=== PATIENT | male | born 1945 | race Caucasian/White ===

== ENCOUNTER 2018-05-09 20:29 | Observation (INO) | payer MEDICARE, BC, OTHER ==
[2018-05-09 21:02] LABS: #Basophils 0.1 thou/uL (0.0-0.2); #Eosinphils 0.4 thou/uL (0.0-0.7); #Lymphocytes 2.3 thou/uL (1.20-3.40); #Monocytes 0.9 thou/uL (0.11-0.59); #Neutrophils 5.5 thou/uL (1.40-6.50); %Basophils 0.9 % (0.0-1.0); %Eosinophils 3.9 % (0.0-10.0); %Lymphocytes 25.1 % (21.0-51.0); %Monocytes 9.3 % (0.0-10.0); %Neutrophils 60.8 % (42.0-75.0); Hemoglobin 15.4 g/dL (14.0-18.0); Mean Corpuscular HGB CONC 35.2 g/dL (32.0-36.0); Mean Corpuscular Hemoglobin 32.8 pg (27.0-31.0); Mean Corpuscular Volume 93.1 fL (78.0-98.0); Mean Platelet Volume 6.8 fL (7.4-10.4); Platelet Count 300 thou/uL (130-400); RBC Distribution Width 12.2 % (11.5-14.5); Red Blood Cell (RBC) Count 4.68 mill/uL (4.70-6.10); White Blood Cell (WBC) Count 9.1 thou/uL (4.8-10.8)
[2018-05-09 21:06] LABS: INR-International Normal Ratio 0.9; PTT 26.5 SEC (22.9-36.1); Prothrombin Time 12.5 SEC (12.0-14.7)
[2018-05-09 21:22] LABS: ALT (SGPT) 29 U/L (8-55); AST (SGOT) 26 U/L (5-34); Albumin 4.5 g/dL (3.4-4.8); Alkaline Phosphatase 89 U/L (40-150); Anion Gap 18 mmol/L (10-20); BUN (Urea Nitrogen) 16 mg/dL (8.4-25.7); Bilirubin, Total 0.6 mg/dL (0.2-1.2); CK (CPK) 197 U/L (30-200); Calc. Creatinine Clearance 0 mL/min (70-130); Calcium 9.9 mg/dL (7.8-10.44); Carbon Dioxide 23 mmol/L (23-31); Chloride 97 mmol/L (98-107); Estimated GFR-MDRD 62; Globulin 3.2 g/dL (2.4-3.5); Glucose 213 mg/dL (83-110); Protein, Total 7.7 g/dL (5.8-8.1); Sodium 134 mmol/L (136-145)
[2018-05-09 21:27] LABS: Troponin I Less than 0.010 ng/mL (< 0.028)
--- NOTE | 2018-05-09 21:29 | RAD ---
CHEST ONE VIEW: 05/09/18 HISTORY: Pain. COMPARISON: 05/24/04. FINDINGS: There are sternotomy wires. Normal cardiac silhouette. The pulmonary vessels and hilum are normal. Co stophrenic angles are clear. Diminished lung volumes, likely due to poor inspiratory effort. Intersti tial opacities in the lung bases are presumed to be due to atelectasis. Superimposed infiltrates kenney ot be completely excluded. No pneumothorax. IMPRESSION: Diminished lung volumes, likely due to poor inspiratory effort. Bibasilar interstitial o pacities as described above. POS: [facility]
[2018-05-09] MEDS ORDERED: Nitroglycerin 0.4 MG TAB (25 Tab Bottle) ONE (23:43)
[2018-05-10 00:24] LABS: Troponin I Less than 0.010 ng/mL (< 0.028)
[2018-05-10] MEDS ORDERED: Acetaminophen 325 MG TAB PO PRN (00:54)
[2018-05-10] MEDS ORDERED: Ondansetron HCl/PF 4 MG/2 ML Vial IVP PRN (00:54)
[2018-05-10] MEDS ORDERED: Ondansetron ODT 4 MG TAB SL PRN (00:54)
[2018-05-10 00:58] VITALS: BMI 30.9
[2018-05-10] MEDS ORDERED: Pramipexole Di-HCl 0.25 MG TAB PO SCH ×3 (03:15→21:00)
[2018-05-10] MEDS ORDERED: Ezetimibe 10 MG TAB PO SCH ×3 (03:15→21:00)
[2018-05-10] MEDS ORDERED: Atorvastatin Calcium 40 MG TAB PO SCH ×3 (03:15→21:00)
[2018-05-10 03:39] LABS: Troponin I 0.013 ng/mL (< 0.028)
[2018-05-10] MEDS ORDERED: HumaLOG 300 UNITS/3 ML VIAL SC PRN (05:23)
[2018-05-10] MEDS ORDERED: Dextrose 50% Abboject 50 ML SYRINGE SLOW IVP PRN (05:23)
[2018-05-10] MEDS ORDERED: Dextrose 5% in Water 1,000 ML IV PRN (05:23)
[2018-05-10] MEDS ORDERED: Clopidogrel Bisulfate 75 MG TAB PO SCH (09:00)
[2018-05-10] MEDS ORDERED: Aspirin 325 MG TAB PO SCH ×2 (09:00)
[2018-05-10] MEDS ORDERED: Non-Formulary Item 1 EACH (Ranolazine [Ranexa] 1,000 MG) PO SCH (09:00)
[2018-05-10] MEDS ORDERED: Insulin Glargine 8 UNITS in Pre-Filled Syringe 1 EACH SC SCH (09:00)
[2018-05-10] MEDS ORDERED: Tamsulosin HCl 0.4 MG CAP PO SCH (09:00)
--- NOTE | 2018-05-10 11:06 | HP ---
CHIEF COMPLAINT: Chest pain. HISTORY OF PRESENT ILLNESS: Patient is a very pleasant 72-year-old male with a history of coronary a rtery disease, status post bypass, who presented to the hospital with complaints of chest tightness. The patient stated that yesterday, while he was putting his medication in a pill box, felt significa nt pressure-like sensation across his chest area and felt that his heart rate was irregular. The pat ient stated that he felt his irregular heart rate. The patient denied any nausea, vomiting, or any d iarrhea. The patient stated that normally he does get some chest tightness; however, at this time it was followed by a pounding of his heart. The patient states that he had a catheterization 2 years a go, which he had some blockages; however, they were un-stentable. The patient had a bypass in 2003. He normally sees Dr. Baker. PAST MEDICAL HISTORY: History of coronary artery disease, diabetes, hypertension, hyperlipidemia. PAST SURGICAL HISTORY: He has had a bypass. He has had rotator cuff, appendectomy, and tonsillectom y. SOCIAL HISTORY: He denies any history of smoking. Occasional alcohol use, no recreational drug use. ALLERGIES: He is allergic to SULFAMETHOXAZOLE, BACTRIM, and IODINE CONTRAST. MEDICATIONS: As the following: Patient takes, 1. Aspirin 325 daily. 2. Atorvastatin 40 mg at bedtime. 3. Plavix 75 mg daily. 4. Zetia 10 mg at bedtime. 5. He takes Humalog 5-10 units p.r.n. 6. He takes 62 units of Lantus. 7. Isosorbide 30 units. 8. Lisinopril/hydrochlorothiazide 1 daily. 9. Metformin 1000 b.i.d. 10. Metoprolol 50 mg daily. 11. Multivitamin 1 daily. 12. Pramipexole 0.5 mg q.p.m. 13. Ranolazine at 1000 mg p.o. b.i.d. 14. Spironolactone 12.5 mg daily. 15. Tamsulosin 0.4 mg daily. REVIEW OF SYSTEMS: All negative except for the ones mentioned above in the HPI. PHYSICAL EXAMINATION: VITAL SIGNS: Temperature of 97.6, 69, 12, 92, 146/77. GENERAL: He is awake, alert, oriented x3, does not appear in distress. CARDIOVASCULAR: S1 and S2 present, irregular; however, there is no consistency. LUNGS: Clear to auscultation, no rhonchi or wheezes noted. ABDOMEN: Soft, nontender. Bowel sounds are present and strong. EXTREMITIES: No edema. NEUROLOGICAL PAZ: No focal deficits noted. SKIN: Intact. LABORATORY DATA: Labs as the following: WBC of 9.1, hemoglobin of 15.4, hematocrit of 43.6, platele ts of 300. Chemistry: Sodium of 134, potassium of 4.0, BUN of 16, creatinine of 1.16, glucose of 21 3. Troponin x3 are negative. EKG that I reviewed indicates some premature atrial contractions. ASSESSMENT AND PLAN: The patient is a very pleasant 72-year-old male, who presents to the hospital w ith complaints of chest pain. 1. Chest pain. Given the patient's history, will undergo a stress test. Patient stated that he has felt some palpitations. This could be his premature atrial tachycardia. His troponin x3 were negat yemi. If his stress test is positive, we will get Cardiology involved. We will continue his home med ications. 2. Hypertension. We will continue his home medications. 3. Diabetes. We will continue his insulin and put him on sliding scale insulin and hold his metform in for now. 4. Deep venous thrombosis prophylaxis. We will put patient on subcutaneous heparin.
--- NOTE | 2018-05-10 13:25 | NM ---
CARDIAC SPECT WITH EJECTION FRACTION AND WALL MOTION: HISTORY: 72-year-old male with history of chest pain, history of coronary artery disease status post coronary artery bypass graft, hypertension, diabetes mellitus, dyslipidemia, and smoking history. TECHNIQUE: Sestamibi study with Pollo protocol. Patient was injected with 31.0 mCi technetium-99m sestamibi intr avenously for stress images and patient was injected with 10.5 mCi technetium-99m sestamibi intraveno usly for resting images. FINDINGS: Multiple images in the short axis, vertical long axis, and horizontal long axis demonstrate no scan e vidence for infarct or ischemia. TID: 1.17 LHR: 0.34 EDV: 84 mL EF: 65% MYOCARDIAL PERFUSION WALL MOTION: Wall motion is normal. IMPRESSION: Normal cardiac SPECT with ejection fraction and wall motion. POS: [facility]
[2018-05-10 15:51] VITALS: BP 121/75; TEMP 97.8
[2018-05-10] MEDS ORDERED: Insulin Glargine 10 UNITS in Pre-Filled Syringe 1 EACH SC SCH (21:00)
--- NOTE | 2018-05-11 11:34 | STRESS ---
Acquisition Time: 2018-05-10 10:51:35 Total Exercise Time: 00:07:03 Test Indications: CHEST PAIN Medications: Protocol: JOANAN Max HR: 139 BPM 94% of Pred: 147 BPM Max BP: 182/064 mmHG Max Work Load: 10.1 METS RESTING ECG: NORMAL SINUS RHYTHM AT 68 BPM WITH RARE PAC'S SYMPTOMS: DYSPNEA ON EXERTION NORMAL BP REPONSE ECTOPY: RARE PAC'S ECG STRESS: NO SIGNIFICANT CHANGES INTERPRETATION: AWAIT NUCLEAR IMAGES FOR DEFINITIVE DIAGNOSIS Confirmed by MARYAM HU ([id number]), development editor TK COONEY ([id number]) on 05/11/2018 11:34:09 AM Referred By: MD Maury CLOUD Confirmed By:MARYAM HU
--- NOTE | 2018-05-12 11:52 | DIS ---
DATE OF ADMISSION: 05/10/2018 DATE OF DISCHARGE: 05/10/2018 DISCHARGE DIAGNOSES: 1. Chest pain. 2. History of coronary artery disease. 3. History of diabetes. 4. History of hypertension. 5. History of hyperlipidemia. HOSPITAL COURSE: This patient is a 72-year-old male with a history of coronary artery disease status post bypass graft who presented with the complaint of chest tightness. The patient reports that he had some very strong heavy palpitation type symptoms in his chest associated with some tightness. He presented to the emergency department where his labs were unremarkable and his EKG was nondiagnostic . His physical exam was also unremarkable. HOSPITAL COURSE: The patient was admitted to observation. He had serial cardiac isoenzymes which re mained negative. He had no issues on his telemetry. He underwent a stress test with Cardiolite whic h revealed an ejection fraction of 65% and no evidence of ischemia. With that, the patient was felt to be stable for discharge to home. PHYSICAL EXAMINATION: VITAL SIGNS: At the time of discharge, temperature is 97.8, pulse 77, respirations 16, O2 sat 93%, b lood pressure was 121/75. HEART: Regular rate and rhythm. LUNGS: Clear bilaterally. ABDOMEN: Benign. EXTREMITIES: Warm and dry. DISPOSITION: The patient is discharged to home. He is to have a normal activity level and a heart h ealthy diet. He will be on nitroglycerin 0.4 mg sublingual every 5 minutes p.r.n. chest pain, multivitamin 1 p.o. daily, Mirapex 0.5 mg p.o. at bedtime, metformin 1000 mg p.o. b.i.d., lisinopril/HCTZ 1 p.o. daily, Plavix 75 mg every day, aspirin 325 every day, Flomax 0.4 mg every day, Zetia 10 mg p.o. at bedtime, Aldactone 12.5 mg 1 p.o. daily, Ranexa 1000 mg b.i.d., isosorbide mononitrate 30 mg every day, Lantu s 62 units at bedtime, ibuprofen p.r.n., Humalog sliding scale, atorvastatin 40 mg at bedtime, metop rolol 50 mg every day. FOLLOWUP: The patient is to follow up with his PCP, Dr. Lord and his personal aircraft shipping checker, Dr. Justine lee. He should return to the emergency department should he have any problems prior to that time.
== END 2018-05-10 16:06 | disposition home or self-care (01) ==
LOC: ERS 20:29 → 2SW 23:34
PROVIDERS: ADMIT Internal Medicine; ATTEND Internal Medicine
DX: R07.9 Chest pain, unspecified (principal); I25.10 Atherosclerotic heart disease of native coronary artery without angina pectoris; E11.9 Type 2 diabetes mellitus without complications; I10 Essential (primary) hypertension; E78.5 Hyperlipidemia, unspecified; Z88.2 Allergy status to sulfonamides; Z88.1 Allergy status to other antibiotic agents; Z91.041 Radiographic dye allergy status; Z79.82 Long term (current) use of aspirin; Z79.02 Long term (current) use of antithrombotics/antiplatelets; Z79.899 Other long term (current) drug therapy
CPT/HCPCS: 71045; 78452; 80053; 82550; 82553; 82962; 84484 ×3; 85025; 85610; 85730; 93005; 93017; 99285; A9500; G0378; 36415; 36416; A4216

== ENCOUNTER 2018-05-15 07:41 | Outpatient (CLI) | payer MEDICARE, BC, OTHER ==
--- NOTE | 2018-05-15 08:56 | MRI ---
MRI BRAIN NONCONTRAST: History: CVA. Paresthesia. FINDINGS: There is no evidence of acute intracranial hemorrhage or infarct. Ventricles appear normal in size, s hape, and position. No mass effect or shift of midline structures. Mild mucosal thickening ethmoid ai r cells. IMPRESSION: No acute intracranial abnormalities are demonstrated. POS: [facility]
== END 2018-05-15 07:42 | disposition home or self-care (01) ==
LOC: TBSIIMAG 07:41
PROVIDERS: ATTEND Family Medicine
DX: R20.2 Paresthesia of skin (principal); Z86.73 Personal history of transient ischemic attack (TIA), and cerebral infarction without residual deficits
CPT/HCPCS: 70551

== ENCOUNTER 2018-11-03 00:14 | Emergency (ER) | payer MEDICARE, BC, OTHER ==
--- NOTE | 2018-11-03 08:55 | RAD ---
LEFT THUMB 3 VIEWS: Date: 11/03/18 HISTORY: Injury, left thumb pain. FINDINGS/IMPRESSION: No acute fracture or dislocation is identified. POS: [facility]
== END 2018-11-03 01:50 | disposition home or self-care (01) ==
LOC: ERS 00:14
DX: S60.112A Contusion of left thumb with damage to nail, initial encounter (principal); G47.30 Sleep apnea, unspecified; I25.10 Atherosclerotic heart disease of native coronary artery without angina pectoris; E11.9 Type 2 diabetes mellitus without complications; E78.5 Hyperlipidemia, unspecified; I10 Essential (primary) hypertension; Z86.73 Personal history of transient ischemic attack (TIA), and cerebral infarction without residual deficits; Z87.891 Personal history of nicotine dependence; Z79.82 Long term (current) use of aspirin; Z79.899 Other long term (current) drug therapy; Z79.4 Long term (current) use of insulin; W23.0XXA Caught, crushed, jammed, or pinched between moving objects, initial encounter
CPT/HCPCS: 11740

== ENCOUNTER 2019-10-30 12:19 | Outpatient (CLI) | payer MEDICARE, BC, OTHER ==
--- NOTE | 2019-10-30 12:57 | RAD ---
LUMBAR SPINE FOUR VIEWS: INDICATIONS: Back pain. FINDINGS: The lumbar vertebrae maintain normal height and alignment. There are mild to moderate degenerative ch anges with spurring. Facet hypertrophy. Loss of disk space at L5-S1. No evidence of spondylolisthesis . Slight curvature to the right in the AP projection. IMPRESSION: Mild to moderate degenerative changes, as described. POS: [facility]
== END 2019-10-30 12:20 | disposition home or self-care (01) ==
LOC: BICRAD 12:19
PROVIDERS: ATTEND Internal Medicine Rheumatology
DX: M54.5 Low back pain (principal); M47.816 Spondylosis without myelopathy or radiculopathy, lumbar region
CPT/HCPCS: 72110

== ENCOUNTER 2021-03-06 23:35 | Inpatient (IN) | payer MEDICARE, BC, OTHER ==
[2021-03-07] MEDS ORDERED: cefTRIAXone\\ROCEPHIN 1 GM VIAL ONE (00:40)
[2021-03-07 00:48] LABS: #Eosinphils 0.3 thou/uL (0.0-0.7); #Monocytes 1.3 thou/uL (0.11-0.59); %Basophils 0.3 % (0.0-1.0); %Lymphocytes 13.6 % (21.0-51.0); %Monocytes 8.8 % (0.0-10.0); %Neutrophils 75.3 % (42.0-75.0); Hemoglobin 14.1 g/dL (14.0-18.0); Mean Corpuscular HGB CONC 34.6 g/dL (32.0-36.0); Mean Corpuscular Hemoglobin 32.3 pg (27.0-31.0); Mean Corpuscular Volume 93.2 fL (78.0-98.0); Platelet Count 279 thou/uL (130-400); Red Blood Cell (RBC) Count 4.37 mill/uL (4.70-6.10); White Blood Cell (WBC) Count 14.6 thou/uL (4.8-10.8)
[2021-03-07] MEDS ORDERED: Vancomycin 1 GM/200 ML BAG ONE (01:03)
[2021-03-07 01:08] LABS: ALT (SGPT) 21 U/L (8-55); AST (SGOT) 16 U/L (5-34); Albumin 4.1 g/dL (3.4-4.8); Alkaline Phosphatase 82 U/L (40-110); Anion Gap 16 mmol/L (10-20); BUN (Urea Nitrogen) 17 mg/dL (8.4-25.7); Bilirubin, Total 0.6 mg/dL (0.2-1.2); Calc. Creatinine Clearance 0 mL/min (70-130); Calcium 9.4 mg/dL (7.8-10.44); Carbon Dioxide 25 mmol/L (23-31); Chloride 98 mmol/L (98-107); Glucose 223 mg/dL (83-110); Potassium 3.7 mmol/L (3.5-5.1); Protein, Total 7.1 g/dL (5.8-8.1); Sodium 135 mmol/L (136-145)
[2021-03-07] MEDS ORDERED: Ondansetron PF 4 MG/2 ML Vial IVP PRN (02:35)
[2021-03-07] MEDS ORDERED: Dextrose 50% Abboject 50 ML SYRINGE SLOW IVP PRN (02:35)
[2021-03-07] MEDS ORDERED: Dextrose 5% in Water 1,000 ML IV PRN (02:35)
[2021-03-07] MEDS ORDERED: hydrALAZINE 20 MG/ML VIAL SLOW IVP PRN (02:37)
[2021-03-07 03:59] VITALS: BMI 30.2
[2021-03-07 08:02] LABS: Hemoglobin 13.2 g/dL (14.0-18.0); Mean Corpuscular Hemoglobin 31.6 pg (27.0-31.0); Mean Corpuscular Volume 93.1 fL (78.0-98.0); Platelet Count 252 thou/uL (130-400); RBC Distribution Width 11.8 % (11.5-14.5); Red Blood Cell (RBC) Count 4.16 mill/uL (4.70-6.10); White Blood Cell (WBC) Count 12.7 thou/uL (4.8-10.8)
[2021-03-07 08:10] LABS: ALT (SGPT) 18 U/L (8-55); AST (SGOT) 14 U/L (5-34); Albumin 3.7 g/dL (3.4-4.8); Alkaline Phosphatase 74 U/L (40-110); Anion Gap 15 mmol/L (10-20); BUN (Urea Nitrogen) 15 mg/dL (8.4-25.7); Bilirubin, Total 0.6 mg/dL (0.2-1.2); Calc. Creatinine Clearance 74 mL/min (70-130); Calcium 9.2 mg/dL (7.8-10.44); Carbon Dioxide 25 mmol/L (23-31); Chloride 97 mmol/L (98-107); Globulin 2.6 g/dL (2.4-3.5); Glucose 237 mg/dL (83-110); Potassium 4.1 mmol/L (3.5-5.1); Protein, Total 6.3 g/dL (5.8-8.1); Sodium 133 mmol/L (136-145)
[2021-03-07] MEDS: metFORMIN 500 MG TAB PO SCH ×2 (08:19→16:26)
[2021-03-07 08:42] LABS: Band 1 % (5-11); Eosinophils 5 % (0-10); Lymphocytes 13 % (21-51); MDiff Complete? YES; Monocytes 11 % (0-10); Neutrophil 70 % (42-75); RBC Morphology Normal
[2021-03-07] MEDS ORDERED: Enoxaparin Sodium 40 MG/0.4 ML SYRINGE ONE (08:57)
[2021-03-07 09:00] LABS: SARS-CoV-2 PCR by NAA Not Detected (NotDetected)
[2021-03-07] MEDS ORDERED: Tamsulosin HCl 0.4 MG CAP PO SCH (09:00)
[2021-03-07] MEDS: Lisinopril/Hydrochlorothiazide 10 mg/12.5 mg Tablet PO SCH (09:01)
[2021-03-07] MEDS: Spironolactone 25 MG TAB PO SCH (09:07)
[2021-03-07] MEDS: Enoxaparin Sodium 40 MG/0.4 ML SYRINGE SC SCH (09:10)
[2021-03-07] MEDS ORDERED: Aspirin 325 MG TAB ONE (09:14)
[2021-03-07] MEDS ORDERED: Clopidogrel Bisulfate 75 MG TAB ONE (09:14)
[2021-03-07] MEDS ORDERED: Bacitracin 1 PK ONE (09:14)
[2021-03-07] MEDS: Aspirin 325 MG TAB PO SCH (09:17)
[2021-03-07] MEDS: Clopidogrel Bisulfate 75 MG TAB PO SCH (09:17)
[2021-03-07] MEDS: Bacitracin 1 PK TOP SCH ×3 (09:17→20:37)
[2021-03-07] MEDS ORDERED: Vancomycin 1 GM in Premix Bag 1 BAG IVPB SCH (13:00)
[2021-03-07] MEDS: Acetaminophen 325 MG TAB PO PRN ×2 (16:25→22:55)
[2021-03-07] MEDS: Vancomycin 1 GM in Premix Bag 1 BAG IVPB SCH (16:27)
[2021-03-07] MEDS: HumaLOG 300 UNITS/3 ML VIAL SC PRN (17:45)
[2021-03-07] MEDS: Lantus 1000 UNITS/10 ML VIAL SC SCH (20:37)
[2021-03-07] MEDS: Ezetimibe 10 MG TAB PO SCH (20:37)
[2021-03-07] MEDS: Pramipexole Di-HCl 0.25 MG TAB PO SCH (20:37)
[2021-03-08] MEDS: Vancomycin 1 GM in Premix Bag 1 BAG IVPB SCH ×2 (03:47→14:40)
[2021-03-08] MEDS: Acetaminophen 325 MG TAB PO PRN ×3 (03:50→20:43)
[2021-03-08] MEDS: HumaLOG 300 UNITS/3 ML VIAL SC PRN ×2 (05:24→16:40)
[2021-03-08] MEDS: Lisinopril/Hydrochlorothiazide 10 mg/12.5 mg Tablet PO SCH (07:50)
[2021-03-08] MEDS: Spironolactone 25 MG TAB PO SCH (07:50)
[2021-03-08] MEDS: metFORMIN 500 MG TAB PO SCH ×2 (07:51→16:14)
[2021-03-08] MEDS: Bacitracin 1 PK TOP SCH ×3 (07:51→20:41)
[2021-03-08] MEDS: Clopidogrel Bisulfate 75 MG TAB PO SCH (07:51)
[2021-03-08] MEDS: Enoxaparin Sodium 40 MG/0.4 ML SYRINGE SC SCH (07:51)
[2021-03-08] MEDS: Aspirin 325 MG TAB PO SCH (07:53)
[2021-03-08] MEDS ORDERED: TETANUS, DIPHTHERIA TOX,ADULT (TDVAX) 0.5 ML VIAL IM ONE (08:48)
[2021-03-08] MEDS: Saccharomyces boulardii 250 MG CAP PO SCH (09:53)
[2021-03-08] MEDS: ceFAZolin 1 GM/D5W 1 GM in Premix Bag 1 BAG IVPB SCH ×2 (09:53→16:41)
[2021-03-08] MEDS: metroNIDAZOLE 500 MG in Premix Bag 1 BAG IVPB SCH ×3 (09:53→22:49)
[2021-03-08] MEDS ORDERED: Magnevist 469MG/ML 20 ML VIAL ONE ×2 (11:59)
[2021-03-08] MEDS: Ezetimibe 10 MG TAB PO SCH (20:41)
[2021-03-08] MEDS: Lantus 1000 UNITS/10 ML VIAL SC SCH (20:41)
[2021-03-08] MEDS: Pramipexole Di-HCl 0.25 MG TAB PO SCH (20:42)
[2021-03-08] MEDS: Tamsulosin HCl 0.4 MG CAP PO SCH (20:43)
[2021-03-09] MEDS: ceFAZolin 1 GM/D5W 1 GM in Premix Bag 1 BAG IVPB SCH ×2 (01:05→08:58)
[2021-03-09] MEDS: Acetaminophen 325 MG TAB PO PRN ×4 (02:40→22:42)
[2021-03-09 04:09] LABS: Vancomycin, Trough 8.8 ug/mL
[2021-03-09] MEDS: Vancomycin 1 GM in Premix Bag 1 BAG IVPB SCH (04:26)
[2021-03-09] MEDS: metroNIDAZOLE 500 MG in Premix Bag 1 BAG IVPB SCH ×4 (04:26→22:43)
[2021-03-09] MEDS: Vancomycin 1.5 GRAM/300 ML BAG 1.5 GM in Premix Bag 1 BAG IVPB SCH ×2 (05:32→16:09)
[2021-03-09] MEDS: HumaLOG 300 UNITS/3 ML VIAL SC PRN ×2 (06:34→16:09)
[2021-03-09] MEDS: Aspirin 325 MG TAB PO SCH (08:06)
[2021-03-09] MEDS: Spironolactone 25 MG TAB PO SCH (08:06)
[2021-03-09] MEDS: Bacitracin 1 PK TOP SCH ×3 (08:07→20:31)
[2021-03-09] MEDS: Saccharomyces boulardii 250 MG CAP PO SCH (08:07)
[2021-03-09] MEDS: metFORMIN 500 MG TAB PO SCH ×2 (08:07→16:11)
[2021-03-09] MEDS: Clopidogrel Bisulfate 75 MG TAB PO SCH (08:07)
[2021-03-09] MEDS: cefTRIAXone\\ROCEPHIN 1 GM in Sodium Chloride 0.9% 100 ML IVPB SCH (08:08)
[2021-03-09] MEDS: Enoxaparin Sodium 40 MG/0.4 ML SYRINGE SC SCH (08:08)
[2021-03-09] MEDS: Lisinopril/Hydrochlorothiazide 10 mg/12.5 mg Tablet PO SCH (08:57)
[2021-03-09 08:58] LABS: #Eosinphils 0.1 thou/uL (0.0-0.7); #Lymphocytes 1.5 thou/uL (1.20-3.40); %Basophils 0.2 % (0.0-1.0); %Eosinophils 0.7 % (0.0-10.0); %Lymphocytes 9.6 % (21.0-51.0); %Monocytes 12.5 % (0.0-10.0); %Neutrophils 76.9 % (42.0-75.0); Hemoglobin 13.3 g/dL (14.0-18.0); Mean Corpuscular HGB CONC 32.7 g/dL (32.0-36.0); Mean Corpuscular Hemoglobin 30.6 pg (27.0-31.0); Mean Corpuscular Volume 93.6 fL (78.0-98.0); Mean Platelet Volume 6.7 fL (7.4-10.4); Platelet Count 268 thou/uL (130-400); RBC Distribution Width 11.9 % (11.5-14.5); Red Blood Cell (RBC) Count 4.35 mill/uL (4.70-6.10); White Blood Cell (WBC) Count 15.7 thou/uL (4.8-10.8)
[2021-03-09 09:17] LABS: Anion Gap 14 mmol/L (10-20); BUN (Urea Nitrogen) 11 mg/dL (8.4-25.7); Calc. Creatinine Clearance 83 mL/min (70-130); Calcium 9.1 mg/dL (7.8-10.44); Carbon Dioxide 24 mmol/L (23-31); Chloride 95 mmol/L (98-107); Glucose 217 mg/dL (83-110); Potassium 4.2 mmol/L (3.5-5.1); Sodium 129 mmol/L (136-145)
[2021-03-09] MEDS ORDERED: Furosemide 20 MG TAB PO SCH (16:00)
[2021-03-09] MEDS: Ezetimibe 10 MG TAB PO SCH (20:30)
[2021-03-09] MEDS: Tamsulosin HCl 0.4 MG CAP PO SCH (20:30)
[2021-03-09] MEDS: Atorvastatin Calcium 40 MG TAB PO SCH (20:30)
[2021-03-09] MEDS: Pramipexole Di-HCl 0.25 MG TAB PO SCH (20:31)
[2021-03-09] MEDS: Lantus 1000 UNITS/10 ML VIAL SC SCH (20:32)
[2021-03-09] MEDS ORDERED: Sodium Chloride 1 GM TAB PO SCH (21:00)
[2021-03-09] MEDS ORDERED: HumaLOG 300 UNITS/3 ML VIAL SC PRN (21:30)
[2021-03-10] MEDS: Acetaminophen 325 MG TAB PO PRN ×2 (04:20→20:38)
[2021-03-10] MEDS: metroNIDAZOLE 500 MG in Premix Bag 1 BAG IVPB SCH ×4 (04:21→23:29)
[2021-03-10] MEDS: Vancomycin 1.5 GRAM/300 ML BAG 1.5 GM in Premix Bag 1 BAG IVPB SCH ×2 (05:36→18:08)
[2021-03-10] MEDS: HumaLOG 300 UNITS/3 ML VIAL SC PRN ×3 (05:36→16:38)
[2021-03-10 06:46] LABS: Anion Gap 12 mmol/L (10-20); BUN (Urea Nitrogen) 14 mg/dL (8.4-25.7); Calc. Creatinine Clearance 90 mL/min (70-130); Calcium 9.2 mg/dL (7.8-10.44); Carbon Dioxide 27 mmol/L (23-31); Chloride 96 mmol/L (98-107); Glucose 148 mg/dL (83-110); Sodium 131 mmol/L (136-145)
[2021-03-10 08:16] LABS: #Eosinphils 0.2 thou/uL (0.0-0.7); #Lymphocytes 1.8 thou/uL (1.20-3.40); #Monocytes 1.9 thou/uL (0.11-0.59); #Neutrophils 11.1 thou/uL (1.40-6.50); %Basophils 0.3 % (0.0-1.0); %Eosinophils 1.3 % (0.0-10.0); %Lymphocytes 11.7 % (21.0-51.0); %Monocytes 12.5 % (0.0-10.0); %Neutrophils 74.2 % (42.0-75.0); Hemoglobin 12.7 g/dL (14.0-18.0); Mean Corpuscular HGB CONC 33.4 g/dL (32.0-36.0); Mean Corpuscular Hemoglobin 31.2 pg (27.0-31.0); Mean Corpuscular Volume 93.5 fL (78.0-98.0); Mean Platelet Volume 6.8 fL (7.4-10.4); Platelet Count 268 thou/uL (130-400); RBC Distribution Width 11.8 % (11.5-14.5); Red Blood Cell (RBC) Count 4.08 mill/uL (4.70-6.10)
[2021-03-10 08:34] LABS: Anion Gap 12 mmol/L (10-20); BUN (Urea Nitrogen) 13 mg/dL (8.4-25.7); Calc. Creatinine Clearance 94 mL/min (70-130); Calcium 8.9 mg/dL (7.8-10.44); Carbon Dioxide 27 mmol/L (23-31); Chloride 96 mmol/L (98-107); Glucose 130 mg/dL (83-110); Sodium 131 mmol/L (136-145)
[2021-03-10] MEDS: Spironolactone 25 MG TAB PO SCH (09:12)
[2021-03-10] MEDS: Bacitracin 1 PK TOP SCH ×3 (09:12→20:44)
[2021-03-10] MEDS: Saccharomyces boulardii 250 MG CAP PO SCH (09:13)
[2021-03-10] MEDS: Clopidogrel Bisulfate 75 MG TAB PO SCH (09:13)
[2021-03-10] MEDS: Aspirin 325 MG TAB PO SCH (09:13)
[2021-03-10] MEDS: cefTRIAXone\\ROCEPHIN 1 GM in Sodium Chloride 0.9% 100 ML IVPB SCH (09:14)
[2021-03-10] MEDS: Lisinopril 10 MG TAB PO SCH (09:14)
[2021-03-10] MEDS: Enoxaparin Sodium 40 MG/0.4 ML SYRINGE SC SCH (09:14)
[2021-03-10] MEDS: metFORMIN 500 MG TAB PO SCH ×2 (09:14→16:37)
[2021-03-10 17:32] LABS: Vancomycin, Trough 12.9 ug/mL
[2021-03-10] MEDS: Pramipexole Di-HCl 0.25 MG TAB PO SCH (20:39)
[2021-03-10] MEDS: Ezetimibe 10 MG TAB PO SCH (20:41)
[2021-03-10] MEDS: Atorvastatin Calcium 40 MG TAB PO SCH (20:42)
[2021-03-10] MEDS: Tamsulosin HCl 0.4 MG CAP PO SCH (20:42)
[2021-03-10] MEDS: Lantus 1000 UNITS/10 ML VIAL SC SCH (20:43)
[2021-03-11] MEDS: VANCOMYCIN 1.25 GM/250 ML BAG 1.25 GM in Premix Bag 1 BAG IVPB SCH ×3 (02:27→19:20)
[2021-03-11] MEDS: HYDROcodone/Acetaminophen 5/325 mg Tablet PO PRN (02:33)
[2021-03-11] MEDS: metroNIDAZOLE 500 MG in Premix Bag 1 BAG IVPB SCH ×4 (05:14→22:38)
[2021-03-11 06:51] LABS: #Basophils 0.1 thou/uL (0.0-0.2); #Eosinphils 0.1 thou/uL (0.0-0.7); #Lymphocytes 1.4 thou/uL (1.20-3.40); #Monocytes 1.6 thou/uL (0.11-0.59); %Basophils 0.6 % (0.0-1.0); %Lymphocytes 11.8 % (21.0-51.0); %Neutrophils 73.6 % (42.0-75.0); Hemoglobin 13.5 g/dL (14.0-18.0); Mean Corpuscular HGB CONC 32.9 g/dL (32.0-36.0); Mean Corpuscular Hemoglobin 30.6 pg (27.0-31.0); Mean Corpuscular Volume 93.2 fL (78.0-98.0); Mean Platelet Volume 6.6 fL (7.4-10.4); Platelet Count 288 thou/uL (130-400); RBC Distribution Width 11.9 % (11.5-14.5); White Blood Cell (WBC) Count 12.2 thou/uL (4.8-10.8)
[2021-03-11 07:13] LABS: Anion Gap 13 mmol/L (10-20); BUN (Urea Nitrogen) 11 mg/dL (8.4-25.7); Calc. Creatinine Clearance 96 mL/min (70-130); Carbon Dioxide 23 mmol/L (23-31); Chloride 100 mmol/L (98-107); Glucose 115 mg/dL (83-110); Potassium 3.8 mmol/L (3.5-5.1); Sodium 132 mmol/L (136-145)
[2021-03-11] MEDS: cefTRIAXone\\ROCEPHIN 1 GM in Sodium Chloride 0.9% 100 ML IVPB SCH (09:00)
[2021-03-11] MEDS: metFORMIN 500 MG TAB PO SCH ×2 (09:01→17:44)
[2021-03-11] MEDS: Saccharomyces boulardii 250 MG CAP PO SCH (09:02)
[2021-03-11] MEDS: Clopidogrel Bisulfate 75 MG TAB PO SCH (09:03)
[2021-03-11] MEDS: Spironolactone 25 MG TAB PO SCH (09:03)
[2021-03-11] MEDS: Lisinopril 10 MG TAB PO SCH (09:03)
[2021-03-11] MEDS: Enoxaparin Sodium 40 MG/0.4 ML SYRINGE SC SCH (09:07)
[2021-03-11] MEDS: Aspirin 325 MG TAB PO SCH (11:55)
[2021-03-11] MEDS: Bacitracin 1 PK TOP SCH ×3 (12:12→20:44)
[2021-03-11] MEDS: HumaLOG 300 UNITS/3 ML VIAL SC PRN (17:43)
[2021-03-11] MEDS: Ezetimibe 10 MG TAB PO SCH (20:44)
[2021-03-11] MEDS: Atorvastatin Calcium 40 MG TAB PO SCH (20:44)
[2021-03-11] MEDS: Pramipexole Di-HCl 0.25 MG TAB PO SCH (20:48)
[2021-03-11] MEDS: Lantus 1000 UNITS/10 ML VIAL SC SCH (20:49)
[2021-03-11] MEDS: Tamsulosin HCl 0.4 MG CAP PO SCH (20:49)
[2021-03-11] MEDS: Acetaminophen 325 MG TAB PO PRN (21:00)
[2021-03-12 01:30] LABS: Vancomycin, Trough 29.4 ug/mL
[2021-03-12] MEDS: VANCOMYCIN 1.25 GM/250 ML BAG 1.25 GM in Premix Bag 1 BAG IVPB SCH ×3 (02:34→21:25)
[2021-03-12] MEDS: HYDROcodone/Acetaminophen 5/325 mg Tablet PO PRN ×3 (04:05→17:46)
[2021-03-12] MEDS: metroNIDAZOLE 500 MG in Premix Bag 1 BAG IVPB SCH ×4 (04:06→23:15)
[2021-03-12] MEDS: metFORMIN 500 MG TAB PO SCH ×2 (09:46→17:47)
[2021-03-12] MEDS: Saccharomyces boulardii 250 MG CAP PO SCH (09:46)
[2021-03-12] MEDS: Aspirin 325 MG TAB PO SCH (09:46)
[2021-03-12] MEDS: Enoxaparin Sodium 40 MG/0.4 ML SYRINGE SC SCH (09:46)
[2021-03-12] MEDS: Clopidogrel Bisulfate 75 MG TAB PO SCH (09:46)
[2021-03-12] MEDS: Spironolactone 25 MG TAB PO SCH (09:47)
[2021-03-12] MEDS: Bacitracin 1 PK TOP SCH ×3 (09:47→20:56)
[2021-03-12] MEDS: Lisinopril 10 MG TAB PO SCH (09:47)
[2021-03-12] MEDS: cefTRIAXone\\ROCEPHIN 1 GM in Sodium Chloride 0.9% 100 ML IVPB SCH (09:48)
[2021-03-12 10:29] LABS: #Eosinphils 0.2 thou/uL (0.0-0.7); #Lymphocytes 1.4 thou/uL (1.20-3.40); #Monocytes 1.3 thou/uL (0.11-0.59); %Basophils 0.3 % (0.0-1.0); %Eosinophils 1.5 % (0.0-10.0); %Lymphocytes 11.5 % (21.0-51.0); %Monocytes 11.2 % (0.0-10.0); %Neutrophils 75.6 % (42.0-75.0); Mean Corpuscular Hemoglobin 31.7 pg (27.0-31.0); Mean Corpuscular Volume 93.3 fL (78.0-98.0); Mean Platelet Volume 6.7 fL (7.4-10.4); Platelet Count 310 thou/uL (130-400); White Blood Cell (WBC) Count 11.9 thou/uL (4.8-10.8)
[2021-03-12 10:46] LABS: Anion Gap 11 mmol/L (10-20); BUN (Urea Nitrogen) 12 mg/dL (8.4-25.7); Calc. Creatinine Clearance 90 mL/min (70-130); Calcium 8.9 mg/dL (7.8-10.44); Carbon Dioxide 23 mmol/L (23-31); Chloride 101 mmol/L (98-107); Glucose 208 mg/dL (83-110); Potassium 4.3 mmol/L (3.5-5.1); Sodium 131 mmol/L (136-145)
[2021-03-12] MEDS: HumaLOG 300 UNITS/3 ML VIAL SC PRN (12:53)
[2021-03-12] MEDS: Tamsulosin HCl 0.4 MG CAP PO SCH (20:56)
[2021-03-12] MEDS: Ezetimibe 10 MG TAB PO SCH (20:56)
[2021-03-12] MEDS: Atorvastatin Calcium 40 MG TAB PO SCH (20:56)
[2021-03-12] MEDS: Pramipexole Di-HCl 0.25 MG TAB PO SCH (20:57)
[2021-03-12] MEDS: Lantus 1000 UNITS/10 ML VIAL SC SCH (20:57)
[2021-03-13] MEDS: Acetaminophen 325 MG TAB PO PRN ×2 (04:40→22:57)
[2021-03-13] MEDS: metroNIDAZOLE 500 MG in Premix Bag 1 BAG IVPB SCH ×3 (04:41→16:11)
[2021-03-13 05:38] LABS: #Basophils 0.1 thou/uL (0.0-0.2); #Eosinphils 0.2 thou/uL (0.0-0.7); #Lymphocytes 1.8 thou/uL (1.20-3.40); #Monocytes 1.5 thou/uL (0.11-0.59); #Neutrophils 8.9 thou/uL (1.40-6.50); %Basophils 0.6 % (0.0-1.0); %Eosinophils 1.6 % (0.0-10.0); %Lymphocytes 14.3 % (21.0-51.0); %Monocytes 12.3 % (0.0-10.0); %Neutrophils 71.2 % (42.0-75.0); Hemoglobin 12.1 g/dL (14.0-18.0); Mean Corpuscular HGB CONC 32.8 g/dL (32.0-36.0); Mean Corpuscular Hemoglobin 30.6 pg (27.0-31.0); Mean Corpuscular Volume 93.2 fL (78.0-98.0); Mean Platelet Volume 6.5 fL (7.4-10.4); Platelet Count 329 thou/uL (130-400); Red Blood Cell (RBC) Count 3.97 mill/uL (4.70-6.10); White Blood Cell (WBC) Count 12.5 thou/uL (4.8-10.8)
[2021-03-13 06:09] LABS: Anion Gap 11 mmol/L (10-20); BUN (Urea Nitrogen) 12 mg/dL (8.4-25.7); Calc. Creatinine Clearance 95 mL/min (70-130); Calcium 8.8 mg/dL (7.8-10.44); Carbon Dioxide 26 mmol/L (23-31); Chloride 102 mmol/L (98-107); Glucose 133 mg/dL (83-110); Potassium 4.7 mmol/L (3.5-5.1); Sodium 134 mmol/L (136-145)
[2021-03-13] MEDS: cefTRIAXone\\ROCEPHIN 1 GM in Sodium Chloride 0.9% 100 ML IVPB SCH (08:44)
[2021-03-13] MEDS: Clopidogrel Bisulfate 75 MG TAB PO SCH (08:46)
[2021-03-13] MEDS: Lisinopril 10 MG TAB PO SCH (08:46)
[2021-03-13] MEDS: Aspirin 325 MG TAB PO SCH (08:46)
[2021-03-13] MEDS: metFORMIN 500 MG TAB PO SCH ×2 (08:47→16:12)
[2021-03-13] MEDS: Spironolactone 25 MG TAB PO SCH (08:47)
[2021-03-13] MEDS: Saccharomyces boulardii 250 MG CAP PO SCH (08:50)
[2021-03-13] MEDS: Bacitracin 1 PK TOP SCH ×2 (08:50→18:48)
[2021-03-13] MEDS: Enoxaparin Sodium 40 MG/0.4 ML SYRINGE SC SCH (08:50)
[2021-03-13] MEDS: VANCOMYCIN 1.25 GM/250 ML BAG 1.25 GM in Premix Bag 1 BAG IVPB SCH ×2 (12:22→22:51)
[2021-03-13] MEDS: HYDROcodone/Acetaminophen 5/325 mg Tablet PO PRN (16:12)
[2021-03-13 21:38] LABS: Vancomycin, Trough 17.6 ug/mL
[2021-03-13] MEDS: Ezetimibe 10 MG TAB PO SCH (21:46)
[2021-03-13] MEDS: Atorvastatin Calcium 40 MG TAB PO SCH (21:46)
[2021-03-13] MEDS: Pramipexole Di-HCl 0.25 MG TAB PO SCH (21:47)
[2021-03-13] MEDS: Tamsulosin HCl 0.4 MG CAP PO SCH (21:47)
[2021-03-13] MEDS: Lantus 1000 UNITS/10 ML VIAL SC SCH (21:48)
[2021-03-14] MEDS: metroNIDAZOLE 500 MG in Premix Bag 1 BAG IVPB SCH ×5 (00:12→23:55)
[2021-03-14 06:12] LABS: #Basophils 0.1 thou/uL (0.0-0.2); #Eosinphils 0.3 thou/uL (0.0-0.7); #Lymphocytes 1.9 thou/uL (1.20-3.40); #Monocytes 1.4 thou/uL (0.11-0.59); #Neutrophils 7.9 thou/uL (1.40-6.50); %Basophils 0.7 % (0.0-1.0); %Lymphocytes 16.3 % (21.0-51.0); %Monocytes 11.9 % (0.0-10.0); %Neutrophils 68.2 % (42.0-75.0); Hemoglobin 12.2 g/dL (14.0-18.0); Mean Corpuscular HGB CONC 33.2 g/dL (32.0-36.0); Mean Corpuscular Hemoglobin 30.8 pg (27.0-31.0); Mean Corpuscular Volume 92.9 fL (78.0-98.0); Mean Platelet Volume 6.6 fL (7.4-10.4); Platelet Count 345 thou/uL (130-400); Red Blood Cell (RBC) Count 3.98 mill/uL (4.70-6.10); White Blood Cell (WBC) Count 11.5 thou/uL (4.8-10.8)
[2021-03-14 06:30] LABS: Anion Gap 13 mmol/L (10-20); BUN (Urea Nitrogen) 10 mg/dL (8.4-25.7); Calc. Creatinine Clearance 100 mL/min (70-130); Calcium 8.6 mg/dL (7.8-10.44); Carbon Dioxide 24 mmol/L (23-31); Chloride 102 mmol/L (98-107); Glucose 94 mg/dL (83-110); Potassium 4.4 mmol/L (3.5-5.1); Sodium 135 mmol/L (136-145)
[2021-03-14] MEDS: cefTRIAXone\\ROCEPHIN 1 GM in Sodium Chloride 0.9% 100 ML IVPB SCH (08:19)
[2021-03-14] MEDS: metFORMIN 500 MG TAB PO SCH ×2 (08:20→18:16)
[2021-03-14] MEDS: Aspirin 325 MG TAB PO SCH (08:21)
[2021-03-14] MEDS: Enoxaparin Sodium 40 MG/0.4 ML SYRINGE SC SCH (08:21)
[2021-03-14] MEDS: Clopidogrel Bisulfate 75 MG TAB PO SCH (08:21)
[2021-03-14] MEDS: Lisinopril 10 MG TAB PO SCH (08:22)
[2021-03-14] MEDS: Saccharomyces boulardii 250 MG CAP PO SCH (08:25)
[2021-03-14] MEDS: Spironolactone 25 MG TAB PO SCH (08:26)
[2021-03-14] MEDS: VANCOMYCIN 1.25 GM/250 ML BAG 1.25 GM in Premix Bag 1 BAG IVPB SCH (11:07)
[2021-03-14] MEDS: Atorvastatin Calcium 40 MG TAB PO SCH (20:36)
[2021-03-14] MEDS: Ezetimibe 10 MG TAB PO SCH (20:36)
[2021-03-14] MEDS: Pramipexole Di-HCl 0.25 MG TAB PO SCH (20:36)
[2021-03-14] MEDS: Tamsulosin HCl 0.4 MG CAP PO SCH (20:36)
[2021-03-14] MEDS: Lantus 1000 UNITS/10 ML VIAL SC SCH (20:38)
[2021-03-14] MEDS ORDERED: Vancomycin HCl 1.25 GM in Sodium Chloride 0.9% 250 ML 250 ML IVPB SCH (22:00)
[2021-03-15] MEDS: metroNIDAZOLE 500 MG in Premix Bag 1 BAG IVPB SCH ×2 (05:24→12:17)
[2021-03-15 06:20] LABS: #Eosinphils 0.6 thou/uL (0.0-0.7); #Lymphocytes 1.7 thou/uL (1.20-3.40); #Monocytes 1.4 thou/uL (0.11-0.59); #Neutrophils 7.9 thou/uL (1.40-6.50); %Basophils 0.4 % (0.0-1.0); %Eosinophils 5.2 % (0.0-10.0); %Lymphocytes 14.8 % (21.0-51.0); %Monocytes 11.7 % (0.0-10.0); Hemoglobin 13.1 g/dL (14.0-18.0); Mean Corpuscular HGB CONC 33.1 g/dL (32.0-36.0); Mean Corpuscular Hemoglobin 31.1 pg (27.0-31.0); Mean Corpuscular Volume 93.8 fL (78.0-98.0); Mean Platelet Volume 6.4 fL (7.4-10.4); Platelet Count 331 thou/uL (130-400); RBC Distribution Width 12.1 % (11.5-14.5); Red Blood Cell (RBC) Count 4.23 mill/uL (4.70-6.10); White Blood Cell (WBC) Count 11.6 thou/uL (4.8-10.8)
[2021-03-15 06:30] LABS: Anion Gap 14 mmol/L (10-20); BUN (Urea Nitrogen) 9 mg/dL (8.4-25.7); Calc. Creatinine Clearance 98 mL/min (70-130); Calcium 8.6 mg/dL (7.8-10.44); Carbon Dioxide 20 mmol/L (23-31); Chloride 104 mmol/L (98-107); Glucose 131 mg/dL (83-110); Potassium 4.5 mmol/L (3.5-5.1); Sodium 133 mmol/L (136-145)
[2021-03-15] MEDS: cefTRIAXone\\ROCEPHIN 1 GM in Sodium Chloride 0.9% 100 ML IVPB SCH (08:39)
[2021-03-15] MEDS: Aspirin 325 MG TAB PO SCH (08:41)
[2021-03-15] MEDS: Clopidogrel Bisulfate 75 MG TAB PO SCH (08:41)
[2021-03-15] MEDS: metFORMIN 500 MG TAB PO SCH ×2 (08:41→17:13)
[2021-03-15] MEDS: Saccharomyces boulardii 250 MG CAP PO SCH (08:41)
[2021-03-15] MEDS: Enoxaparin Sodium 40 MG/0.4 ML SYRINGE SC SCH (08:42)
[2021-03-15] MEDS: Lisinopril 10 MG TAB PO SCH (08:42)
[2021-03-15] MEDS: Spironolactone 25 MG TAB PO SCH (08:42)
[2021-03-15 09:39] LABS: Vancomycin, Trough 14.1 ug/mL
[2021-03-15] MEDS ORDERED: VANCOMYCIN 1.25 GM/250 ML BAG 1.25 GM in Premix Bag 1 BAG IVPB SCH (10:00)
[2021-03-15] MEDS: MEROPENEM 1 GM/50 ML 1 GM in Premix Bag 1 BAG IVPB SCH ×2 (12:34→20:38)
[2021-03-15] MEDS: Atorvastatin Calcium 40 MG TAB PO SCH (20:38)
[2021-03-15] MEDS: Doxycycline 100 MG CAP PO SCH (20:38)
[2021-03-15] MEDS: Ezetimibe 10 MG TAB PO SCH (20:38)
[2021-03-15] MEDS: Pramipexole Di-HCl 0.25 MG TAB PO SCH (20:38)
[2021-03-15] MEDS: Tamsulosin HCl 0.4 MG CAP PO SCH (20:38)
[2021-03-15] MEDS: Lantus 1000 UNITS/10 ML VIAL SC SCH (20:39)
[2021-03-16] MEDS: MEROPENEM 1 GM/50 ML 1 GM in Premix Bag 1 BAG IVPB SCH ×3 (04:51→20:50)
[2021-03-16 06:20] LABS: Band 3 % (5-11); Eosinophils 4 % (0-10); Hemoglobin 12.4 g/dL (14.0-18.0); Lymphocytes 17 % (21-51); MDiff Complete? YES; Mean Corpuscular HGB CONC 33.2 g/dL (32.0-36.0); Mean Corpuscular Hemoglobin 30.9 pg (27.0-31.0); Mean Corpuscular Volume 93.1 fL (78.0-98.0); Mean Platelet Volume 6.2 fL (7.4-10.4); Monocytes 10 % (0-10); Neutrophil 66 % (42-75); Platelet Count 408 thou/uL (130-400); Platelet Morphology Comment Appears Increased; White Blood Cell (WBC) Count 11.3 thou/uL (4.8-10.8)
[2021-03-16 06:23] LABS: Anion Gap 11 mmol/L (10-20); BUN (Urea Nitrogen) 10 mg/dL (8.4-25.7); Calc. Creatinine Clearance 100 mL/min (70-130); Calcium 9.4 mg/dL (7.8-10.44); Carbon Dioxide 25 mmol/L (23-31); Chloride 102 mmol/L (98-107); Glucose 109 mg/dL (83-110); Sodium 134 mmol/L (136-145)
[2021-03-16] MEDS: Doxycycline 100 MG CAP PO SCH ×2 (08:02→20:50)
[2021-03-16] MEDS: Aspirin 325 MG TAB PO SCH (08:02)
[2021-03-16] MEDS: metFORMIN 500 MG TAB PO SCH ×2 (08:02→17:12)
[2021-03-16] MEDS: Saccharomyces boulardii 250 MG CAP PO SCH (08:02)
[2021-03-16] MEDS: Lisinopril 10 MG TAB PO SCH (08:03)
[2021-03-16] MEDS: Spironolactone 25 MG TAB PO SCH (08:03)
[2021-03-16] MEDS: Enoxaparin Sodium 40 MG/0.4 ML SYRINGE SC SCH (08:03)
[2021-03-16] MEDS: Clopidogrel Bisulfate 75 MG TAB PO SCH (08:03)
[2021-03-16] MEDS: HumaLOG 300 UNITS/3 ML VIAL SC PRN (17:09)
[2021-03-16] MEDS: Atorvastatin Calcium 40 MG TAB PO SCH (20:50)
[2021-03-16] MEDS: Tamsulosin HCl 0.4 MG CAP PO SCH (20:51)
[2021-03-16] MEDS: Lantus 1000 UNITS/10 ML VIAL SC SCH (20:51)
[2021-03-16] MEDS: Pramipexole Di-HCl 0.25 MG TAB PO SCH (20:51)
[2021-03-16] MEDS: Ezetimibe 10 MG TAB PO SCH (20:51)
[2021-03-17] MEDS: MEROPENEM 1 GM/50 ML 1 GM in Premix Bag 1 BAG IVPB SCH (04:20)
[2021-03-17 07:40] LABS: #Eosinphils 0.4 thou/uL (0.0-0.7); #Monocytes 1.1 thou/uL (0.11-0.59); #Neutrophils 6.6 thou/uL (1.40-6.50); %Basophils 0.3 % (0.0-1.0); %Eosinophils 4.4 % (0.0-10.0); %Lymphocytes 19.3 % (21.0-51.0); %Monocytes 10.9 % (0.0-10.0); %Neutrophils 65.1 % (42.0-75.0); Hemoglobin 12.7 g/dL (14.0-18.0); Mean Corpuscular HGB CONC 32.7 g/dL (32.0-36.0); Mean Corpuscular Hemoglobin 30.5 pg (27.0-31.0); Mean Corpuscular Volume 93.2 fL (78.0-98.0); Mean Platelet Volume 6.1 fL (7.4-10.4); Platelet Count 440 thou/uL (130-400); Red Blood Cell (RBC) Count 4.16 mill/uL (4.70-6.10); White Blood Cell (WBC) Count 10.1 thou/uL (4.8-10.8)
[2021-03-17 07:43] LABS: Anion Gap 10 mmol/L (10-20); BUN (Urea Nitrogen) 10 mg/dL (8.4-25.7); Calc. Creatinine Clearance 104 mL/min (70-130); Calcium 9.5 mg/dL (7.8-10.44); Carbon Dioxide 28 mmol/L (23-31); Chloride 100 mmol/L (98-107); Glucose 109 mg/dL (83-110); Potassium 3.9 mmol/L (3.5-5.1); Sodium 134 mmol/L (136-145)
[2021-03-17] MEDS: Aspirin 325 MG TAB PO SCH (07:45)
[2021-03-17] MEDS: Lisinopril 10 MG TAB PO SCH (07:45)
[2021-03-17] MEDS: metFORMIN 500 MG TAB PO SCH (07:46)
[2021-03-17] MEDS: Doxycycline 100 MG CAP PO SCH (07:46)
[2021-03-17] MEDS: Clopidogrel Bisulfate 75 MG TAB PO SCH (07:46)
[2021-03-17] MEDS: Saccharomyces boulardii 250 MG CAP PO SCH (07:46)
[2021-03-17] MEDS: Spironolactone 25 MG TAB PO SCH (07:47)
[2021-03-17] MEDS: Enoxaparin Sodium 40 MG/0.4 ML SYRINGE SC SCH (07:50)
[2021-03-17 08:41] VITALS: BP 124/72; TEMP 98.1
== END 2021-03-17 10:30 | disposition home health service (06) | DRG 602 ==
LOC: ERS 23:35 → ERHOLD 03-07 02:32 → T4-B 03-07 14:39
PROVIDERS: ADMIT Internal Medicine; ATTEND Internal Medicine
PROC: 02HV33Z Insertion of Infusion Device into Superior Vena Cava, Percutaneous Approach (ICD-10-PCS; principal; 2021-03-16)
PROC: B5181ZA Fluoroscopy of Superior Vena Cava using Low Osmolar Contrast, Guidance (ICD-10-PCS; 2021-03-16)
PROC: B548ZZA Ultrasonography of Superior Vena Cava, Guidance (ICD-10-PCS; 2021-03-16)
DX: L03.115 Cellulitis of right lower limb (principal); I50.23 Acute on chronic systolic (congestive) heart failure; E87.1 Hypo-osmolality and hyponatremia; I96 Gangrene, not elsewhere classified; Z20.822 Contact with and (suspected) exposure to COVID-19; E11.9 Type 2 diabetes mellitus without complications; G47.30 Sleep apnea, unspecified; I25.10 Atherosclerotic heart disease of native coronary artery without angina pectoris; E78.5 Hyperlipidemia, unspecified; E78.00 Pure hypercholesterolemia, unspecified; I11.0 Hypertensive heart disease with heart failure; I25.5 Ischemic cardiomyopathy; B96.89 Other specified bacterial agents as the cause of diseases classified elsewhere; Z86.73 Personal history of transient ischemic attack (TIA), and cerebral infarction without residual deficits; Z95.1 Presence of aortocoronary bypass graft; Z90.49 Acquired absence of other specified parts of digestive tract; Z87.891 Personal history of nicotine dependence; Z88.2 Allergy status to sulfonamides; Z88.1 Allergy status to other antibiotic agents; Z91.041 Radiographic dye allergy status; Z79.01 Long term (current) use of anticoagulants; Z79.82 Long term (current) use of aspirin; Z79.4 Long term (current) use of insulin; Z79.899 Other long term (current) drug therapy
CPT/HCPCS: 36415; 36416; 36569; 80048; 80053; 80202; 83605; 85025; 87040; 87070; 87205; 87635; 90714; 96365; 96366; 96367; A9579; C1751; J0690; J0696; J1650; J1815; J2185; J3370; J3490; J7050; U0003; U0005

== ENCOUNTER 2021-03-17 11:44 | Emergency (ER) | payer MEDICARE, BC, OTHER | END 2021-03-17 15:47 | disposition home or self-care (01) | LOC: ERS 11:44 | DX: T82.838A Hemorrhage due to vascular prosthetic devices, implants and grafts, initial encounter (principal); G47.30 Sleep apnea, unspecified; I25.10 Atherosclerotic heart disease of native coronary artery without angina pectoris; E11.9 Type 2 diabetes mellitus without complications; E78.5 Hyperlipidemia, unspecified; E78.00 Pure hypercholesterolemia, unspecified; I10 Essential (primary) hypertension; Z86.73 Personal history of transient ischemic attack (TIA), and cerebral infarction without residual deficits; Z87.891 Personal history of nicotine dependence | CPT/HCPCS: 99283 ==

== ENCOUNTER → 2021-06-26 | Outpatient (CLI) | payer MEDICARE, BC, OTHER | LOC: SCSRAD 12:15 | PROVIDERS: ATTEND Orthopaedic Surgery | DX: M47.816 Spondylosis without myelopathy or radiculopathy, lumbar region (principal); M51.86 Other intervertebral disc disorders, lumbar region; M48.061 Spinal stenosis, lumbar region without neurogenic claudication | CPT/HCPCS: 72148 ==

== ENCOUNTER 2023-07-30 13:26 | Outpatient (CLI) | payer MEDICARE, BC, OTHER | END 2023-07-30 13:27 | disposition home or self-care (01) | LOC: DTY/OP 13:26 | PROVIDERS: ATTEND Family Medicine | DX: E11.9 Type 2 diabetes mellitus without complications (principal); Z71.3 Dietary counseling and surveillance | CPT/HCPCS: 97802 ==

== ENCOUNTER 2023-12-17 14:19 | Outpatient (CLI) | payer OTHER | END 2023-12-17 14:20 | disposition home or self-care (01) | LOC: BICRAD 14:19 | PROVIDERS: ATTEND Chiropractor | DX: M54.50 Low back pain, unspecified (principal); E11.9 Type 2 diabetes mellitus without complications; I10 Essential (primary) hypertension; M47.816 Spondylosis without myelopathy or radiculopathy, lumbar region | CPT/HCPCS: 36415; 72100; 80053; 81001 ==

== ENCOUNTER 2024-08-03 05:43 | Day surgery (SDC) | payer MEDICARE, OTHER ==
[2024-07-28 11:33] VITALS: BMI 29.3
[2024-08-03] MEDS ORDERED: mitoMYcin 40 MG in Sodium Chloride 0.9% 40 ML I-VESIC SCH (06:30)
[2024-08-03] MEDS ORDERED: PROPOFOL 20 ML ONE (06:52)
[2024-08-03] MEDS ORDERED: Rocuronium Bromide 10 MG/ML (10ML VIAL) ONE ×2 (06:52→06:55)
[2024-08-03] MEDS ORDERED: fentaNYL 50 mcg/mL 1 mL Vial ONE (06:52)
[2024-08-03] MEDS ORDERED: Iopamidol 30 ML ONE (07:17)
[2024-08-03] MEDS ORDERED: Sodium Chloride 0.9% 100 ML ONE (07:25)
[2024-08-03] MEDS ORDERED: CEFAZOLIN 2 GM VIAL ONE (07:25)
[2024-08-03] MEDS ORDERED: Glycopyrrolate 0.2 MG/ML 5 ML SYRINGE ONE (07:39)
[2024-08-03] MEDS ORDERED: Lidocaine 1% PF 5 ML VIAL ONE (07:39)
[2024-08-03] MEDS ORDERED: PHENYLEPHRINE-NS 100 MCG/ML 10 ML SYRINGE ONE (07:39)
[2024-08-03] MEDS ORDERED: Dexamethasone 4 mg/ml Vial ONE (07:46)
[2024-08-03] MEDS ORDERED: Ondansetron PF 4 MG/2 ML Vial ONE (07:46)
[2024-08-03] MEDS ORDERED: Ketamine In 0.9 % NaCl 50 MG/5 ML SYRINGE ONE (07:48)
[2024-08-03] MEDS ORDERED: ePHEDrine Sulfate 50 MG/10 ML VIAL ONE (07:51)
[2024-08-03] MEDS ORDERED: SUGAMMADEX SODIUM 200 MG/2 ML VIAL ONE (08:29)
== END 2024-08-03 10:43 | disposition home or self-care (01) ==
LOC: SDC 05:43
PROVIDERS: ATTEND Urology
PROC: 0TBB8ZZ Excision of Bladder, Via Natural or Artificial Opening Endoscopic (ICD-10-PCS; principal; 2024-08-03)
PROC: 3E0K8GC Introduction of Other Therapeutic Substance into Genitourinary Tract, Via Natural or Artificial Opening Endoscopic (ICD-10-PCS; 2024-08-03)
DX: C67.9 Malignant neoplasm of bladder, unspecified (principal); D49.4 Neoplasm of unspecified behavior of bladder; R31.0 Gross hematuria; I10 Essential (primary) hypertension; Z87.19 Personal history of other diseases of the digestive system; E11.9 Type 2 diabetes mellitus without complications; I25.10 Atherosclerotic heart disease of native coronary artery without angina pectoris; E78.00 Pure hypercholesterolemia, unspecified; Z95.1 Presence of aortocoronary bypass graft; Z90.49 Acquired absence of other specified parts of digestive tract; Z79.899 Other long term (current) drug therapy; Z98.890 Other specified postprocedural states; Z91.041 Radiographic dye allergy status; Z88.2 Allergy status to sulfonamides; Z79.4 Long term (current) use of insulin
CPT/HCPCS: 51720; 52234; 74420; J1100; J2405; J2704; J3010; J3490; J9280; Q9967; 88305; C2617

== ENCOUNTER 2024-08-20 11:15 | Inpatient (IN) | payer MEDICARE, OTHER ==
[2024-08-20 12:14] LABS: #Basophils 0.03 10x3/uL (0.0-0.2); %Basophils 0.3 % (0.0-1.0); %Eosinophils 2.9 % (0.0-10.0); %Lymphocytes 14.3 % (21.0-51.0); %Monocytes 10.3 % (0.0-10.0); %Neutrophils 71.8 % (42.0-75.0); Hematocrit 33.9 % (42.0-52.0); Mean Corpuscular HGB CONC 32.4 g/dL (32.0-36.0); Mean Corpuscular Hemoglobin 28.3 pg (27.0-31.0); Mean Corpuscular Volume 87.1 fL (78.0-98.0); Platelet Count 355 10x3/uL (130-400); RBC Distribution Width 14.7 % (11.5-14.5); Red Blood Cell (RBC) Count 3.89 mill/uL (4.70-6.10)
[2024-08-20 12:28] LABS: PTT 31.3 sec (22.9-36.1); Prothrombin Time 13.4 sec (12.0-14.7)
[2024-08-20 12:33] LABS: ALT (SGPT) 15 U/L (8-55); AST (SGOT) 15 U/L (5-34); Albumin 3.7 g/dL (3.4-4.8); Alkaline Phosphatase 73 U/L (40-110); Anion Gap 12 mmol/L (10-20); BUN (Urea Nitrogen) 9 mg/dL (8.4-25.7); Bilirubin, Total 0.3 mg/dL (0.2-1.2); Calc. Creatinine Clearance 0 mL/min (70-130); Calcium 9.6 mg/dL (7.8-10.44); Carbon Dioxide 27 mmol/L (23-31); Chloride 99 mmol/L (98-107); Estimated GFR 79; Globulin 2.9 g/dL (2.4-3.5); Glucose 147 mg/dL (83-110); Potassium 4.4 mmol/L (3.5-5.1); Protein, Total 6.6 g/dL (5.8-8.1); Sodium 134 mmol/L (136-145)
[2024-08-20 12:40] LABS: Clarity Hazy (Clear)
[2024-08-20 12:41] LABS: Bilirubin Unable to Interpret (Negative); Blood, Urine Unable to Interpret (Negative); Glucose, Urine (Dipstick) Unable to Interpret mg/dL (Negative); Ketone, Urine Unable to Interpret mg/dL (Negative); Leukocyte Unable to Interpret (Negative); Nitrite Unable to Interpret (Negative); Protein, Urine (Dipstick) Unable to Interpret mg/dL (Neg-Trace); Urobilinogen UNABLE TO INTERPRET mg/dL (Less than 2)
[2024-08-20 12:45] LABS: RBC/HPF Greater than 50 HPF (0-3)
[2024-08-20 12:46] LABS: CAUTI Indications for Culture Urological Procedure; Urine Culture Reflex No No; Urine Culture Reflex Yes Yes; WBC/HPF 0-3 HPF (0-3)
[2024-08-20] MEDS ORDERED: traMADol HCl 50 MG TAB PO PRN (15:30)
[2024-08-20] MEDS ORDERED: Acetaminophen 325 MG TAB PO PRN (15:30)
[2024-08-20 17:28] VITALS: BMI 29.2
[2024-08-21 05:31] LABS: #Basophils 0.04 10x3/uL (0.0-0.2); %Basophils 0.4 % (0.0-1.0); %Eosinophils 4.9 % (0.0-10.0); %Lymphocytes 16.5 % (21.0-51.0); %Monocytes 14.3 % (0.0-10.0); %Neutrophils 63.6 % (42.0-75.0); Hematocrit 33.7 % (42.0-52.0); Hemoglobin 11.1 g/dL (14.0-18.0); Mean Corpuscular HGB CONC 32.9 g/dL (32.0-36.0); Mean Corpuscular Hemoglobin 27.5 pg (27.0-31.0); Mean Corpuscular Volume 83.6 fL (78.0-98.0); Mean Platelet Volume 9.2 fL (7.4-10.4); Platelet Count 347 10x3/uL (130-400); RBC Distribution Width 14.9 % (11.5-14.5); Red Blood Cell (RBC) Count 4.03 mill/uL (4.70-6.10)
[2024-08-21 05:43] LABS: Anion Gap 11 mmol/L (10-20); BUN (Urea Nitrogen) 9 mg/dL (8.4-25.7); Calc. Creatinine Clearance 84 mL/min (70-130); Calcium 9.2 mg/dL (7.8-10.44); Carbon Dioxide 27 mmol/L (23-31); Chloride 101 mmol/L (98-107); Estimated GFR 87; Glucose 165 mg/dL (83-110); Potassium 3.8 mmol/L (3.5-5.1); Sodium 135 mmol/L (136-145)
[2024-08-21] MEDS ORDERED: Nitroglycerin 0.4 MG TAB (25 Tab Bottle) SL PRN (12:06)
[2024-08-21] MEDS ORDERED: Dextrose 5% in Water 1,000 ML IV PRN (13:59)
[2024-08-21] MEDS ORDERED: Dextrose 50% Abboject 50 ML SYRINGE SLOW IVP PRN (13:59)
[2024-08-21] MEDS ORDERED: Glucagon 1 MG/ML KIT IM PRN (13:59)
[2024-08-21] MEDS: metFORMIN 500 MG TAB PO SCH (16:37)
[2024-08-21] MEDS: Insulin Lispro 100 UNIT/ML 10 ML VIAL SC PRN (16:42)
[2024-08-21] MEDS ORDERED: Non-Formulary Item 1 EACH (Metformin Hcl [Metformin Hcl] 1,000 MG Tablet) PO SCH (17:00)
[2024-08-21] MEDS: Pantoprazole DR 40 MG TAB PO SCH (20:40)
[2024-08-21] MEDS: Atorvastatin Calcium 40 MG TAB PO SCH (20:41)
[2024-08-21] MEDS: Tamsulosin HCl 0.4 MG CAP PO SCH (20:41)
[2024-08-21] MEDS: Ezetimibe 10 MG TAB PO SCH (20:41)
[2024-08-21] MEDS: Ranolazine ER 500 MG TAB PO SCH (20:41)
[2024-08-21] MEDS: Insulin Glargine 30 UNITS/0.3 ML VIAL SC SCH (20:42)
[2024-08-21] MEDS ORDERED: Non-Formulary Item 1 EACH (Ranolazine [Ranexa] 1,000 MG Tab.Er.12h) PO SCH (21:00)
[2024-08-21] MEDS ORDERED: Non-Formulary Item 1 EACH (Insulin Glargine,Hum.Rec.Anlog [Lantus Solostar] 100 UNIT/ML P SQ SCH (21:00)
[2024-08-22 05:58] LABS: #Basophils 0.05 10x3/uL (0.0-0.2); %Basophils 0.6 % (0.0-1.0); %Eosinophils 5.2 % (0.0-10.0); %Lymphocytes 15.5 % (21.0-51.0); %Monocytes 14.5 % (0.0-10.0); %Neutrophils 63.9 % (42.0-75.0); Hematocrit 35.9 % (42.0-52.0); Hemoglobin 11.7 g/dL (14.0-18.0); Mean Corpuscular HGB CONC 32.6 g/dL (32.0-36.0); Mean Corpuscular Hemoglobin 27.4 pg (27.0-31.0); Mean Corpuscular Volume 84.1 fL (78.0-98.0); Mean Platelet Volume 9.3 fL (7.4-10.4); Platelet Count 354 10x3/uL (130-400); RBC Distribution Width 14.9 % (11.5-14.5); Red Blood Cell (RBC) Count 4.27 mill/uL (4.70-6.10)
[2024-08-22 06:13] LABS: Anion Gap 14 mmol/L (10-20); BUN (Urea Nitrogen) 10 mg/dL (8.4-25.7); Calc. Creatinine Clearance 78 mL/min (70-130); Calcium 9.2 mg/dL (7.8-10.44); Carbon Dioxide 25 mmol/L (23-31); Chloride 99 mmol/L (98-107); Estimated GFR 81; Glucose 181 mg/dL (83-110); Sodium 134 mmol/L (136-145)
[2024-08-22] MEDS: Isosorbide Mononitrate 60 MG ER.TAB PO SCH (08:38)
[2024-08-22] MEDS: Aspirin 325 MG TAB PO SCH (08:38)
[2024-08-22] MEDS: Spironolactone 25 MG TAB PO SCH (08:38)
[2024-08-22] MEDS: Furosemide 20 MG TAB PO SCH (08:39)
[2024-08-22] MEDS ORDERED: Isosorbide Mononitrate 30 MG ER.TAB PO SCH (09:00)
[2024-08-22] MEDS: Pramipexole Di-HCl 1 MG TAB PO SCH (21:19)
[2024-08-23 06:04] LABS: #Basophils 0.04 10x3/uL (0.0-0.2); %Basophils 0.5 % (0.0-1.0); %Eosinophils 7.3 % (0.0-10.0); %Lymphocytes 17.5 % (21.0-51.0); %Monocytes 14.9 % (0.0-10.0); %Neutrophils 59.4 % (42.0-75.0); Hematocrit 33.8 % (42.0-52.0); Mean Corpuscular HGB CONC 32.5 g/dL (32.0-36.0); Mean Corpuscular Hemoglobin 28.2 pg (27.0-31.0); Mean Corpuscular Volume 86.7 fL (78.0-98.0); Platelet Count 348 10x3/uL (130-400); RBC Distribution Width 14.9 % (11.5-14.5)
[2024-08-23 06:21] LABS: Anion Gap 14 mmol/L (10-20); BUN (Urea Nitrogen) 13 mg/dL (8.4-25.7); Calc. Creatinine Clearance 80 mL/min (70-130); Calcium 9.4 mg/dL (7.8-10.44); Carbon Dioxide 25 mmol/L (23-31); Chloride 99 mmol/L (98-107); Estimated GFR 85; Glucose 116 mg/dL (83-110); Sodium 134 mmol/L (136-145)
[2024-08-23] MEDS: Pramipexole Di-HCl 1 MG TAB PO SCH (21:15)
[2024-08-24 05:37] LABS: #Basophils 0.04 10x3/uL (0.0-0.2); %Basophils 0.5 % (0.0-1.0); %Lymphocytes 21.1 % (21.0-51.0); %Monocytes 14.7 % (0.0-10.0); %Neutrophils 57.2 % (42.0-75.0); Hematocrit 31.7 % (42.0-52.0); Hemoglobin 10.5 g/dL (14.0-18.0); Mean Corpuscular HGB CONC 33.1 g/dL (32.0-36.0); Mean Corpuscular Hemoglobin 28.2 pg (27.0-31.0); Mean Corpuscular Volume 85.2 fL (78.0-98.0); Mean Platelet Volume 9.2 fL (7.4-10.4); Platelet Count 356 10x3/uL (130-400); RBC Distribution Width 14.6 % (11.5-14.5); Red Blood Cell (RBC) Count 3.72 mill/uL (4.70-6.10)
[2024-08-24 05:50] LABS: Anion Gap 14 mmol/L (10-20); BUN (Urea Nitrogen) 13 mg/dL (8.4-25.7); Calc. Creatinine Clearance 89 mL/min (70-130); Calcium 9.3 mg/dL (7.8-10.44); Carbon Dioxide 22 mmol/L (23-31); Chloride 98 mmol/L (98-107); Estimated GFR 89; Glucose 117 mg/dL (83-110); Potassium 3.9 mmol/L (3.5-5.1); Sodium 130 mmol/L (136-145)
[2024-08-24] MEDS: Ferrous Fumarate 324 MG TAB PO SCH (09:40)
[2024-08-24] MEDS: Bisacodyl 5 MG TAB PO SCH (11:12)
[2024-08-24] MEDS: LevoFLOXacin 500 MG TAB PO SCH (11:12)
[2024-08-24] MEDS: LevoFLOXacin 500 mg/D5W 500 MG in Premix 1 BAG IVPB SCH (12:37)
[2024-08-24] MEDS: Ondansetron PF 4 MG/2 ML Vial IVP PRN (13:32)
[2024-08-24] MEDS: Scopolamine 1 mg/72 hour Patch TD SCH (18:06)
[2024-08-24] MEDS: Promethazine HCl 12.5 MG in Sodium Chloride 0.9% 50 ML IVPB SCH (18:16)
[2024-08-24 19:20] LABS: #Basophils 0.04 10x3/uL (0.0-0.2); %Basophils 0.4 % (0.0-1.0); %Eosinophils 1.2 % (0.0-10.0); %Lymphocytes 12.1 % (21.0-51.0); %Monocytes 10.3 % (0.0-10.0); %Neutrophils 75.3 % (42.0-75.0); Hematocrit 33.4 % (42.0-52.0); Hemoglobin 10.9 g/dL (14.0-18.0); Mean Corpuscular HGB CONC 32.6 g/dL (32.0-36.0); Mean Corpuscular Hemoglobin 27.7 pg (27.0-31.0); Mean Corpuscular Volume 84.8 fL (78.0-98.0); Mean Platelet Volume 8.8 fL (7.4-10.4); Platelet Count 343 10x3/uL (130-400); RBC Distribution Width 14.5 % (11.5-14.5); Red Blood Cell (RBC) Count 3.94 mill/uL (4.70-6.10)
[2024-08-24 19:42] LABS: ALT (SGPT) 15 U/L (8-55); AST (SGOT) 14 U/L (5-34); Albumin 3.4 g/dL (3.4-4.8); Alkaline Phosphatase 66 U/L (40-110); Anion Gap 16 mmol/L (10-20); BUN (Urea Nitrogen) 13 mg/dL (8.4-25.7); Bilirubin, Total 0.3 mg/dL (0.2-1.2); Calc. Creatinine Clearance 89 mL/min (70-130); Calcium 9.2 mg/dL (7.8-10.44); Carbon Dioxide 21 mmol/L (23-31); Chloride 93 mmol/L (98-107); Estimated GFR 89; Globulin 2.9 g/dL (2.4-3.5); Glucose 142 mg/dL (83-110); Potassium 4.5 mmol/L (3.5-5.1); Protein, Total 6.3 g/dL (5.8-8.1); Sodium 125 mmol/L (136-145)
[2024-08-24] MEDS: D5 1/2 NS w/20 mEq KCL 1,000 ML IV SCH (21:09)
[2024-08-25 05:20] LABS: #Basophils Less than 0.03 10x3/uL (0.0-0.2); %Basophils 0.2 % (0.0-1.0); %Eosinophils 2.8 % (0.0-10.0); %Lymphocytes 21.1 % (21.0-51.0); %Monocytes 13.8 % (0.0-10.0); %Neutrophils 61.5 % (42.0-75.0); Hematocrit 33.9 % (42.0-52.0); Hemoglobin 11.4 g/dL (14.0-18.0); Mean Corpuscular HGB CONC 33.6 g/dL (32.0-36.0); Mean Corpuscular Hemoglobin 27.6 pg (27.0-31.0); Mean Corpuscular Volume 82.1 fL (78.0-98.0); Mean Platelet Volume 8.7 fL (7.4-10.4); Platelet Count 370 10x3/uL (130-400); RBC Distribution Width 14.4 % (11.5-14.5); Red Blood Cell (RBC) Count 4.13 mill/uL (4.70-6.10)
[2024-08-25 05:31] LABS: Anion Gap 12 mmol/L (10-20); BUN (Urea Nitrogen) 11 mg/dL (8.4-25.7); Calc. Creatinine Clearance 75 mL/min (70-130); Calcium 9.4 mg/dL (7.8-10.44); Carbon Dioxide 26 mmol/L (23-31); Chloride 95 mmol/L (98-107); Estimated GFR 78; Glucose 104 mg/dL (83-110); Potassium 3.9 mmol/L (3.5-5.1); Sodium 129 mmol/L (136-145)
[2024-08-25] MEDS ORDERED: LevoFLOXacin 500 MG TAB PO SCH (12:00)
[2024-08-25 12:35] VITALS: BP 124/64; TEMP 98
== END 2024-08-25 13:24 | disposition home or self-care (01) | DRG 699 ==
LOC: ERS 11:15 → T4-B 14:50 → OBSVTOIN 08-21 13:59
PROVIDERS: ADMIT Internal Medicine; ATTEND Internal Medicine
PROC: 3E1N78Z Irrigation of Male Reproductive using Irrigating Substance, Via Natural or Artificial Opening (ICD-10-PCS; principal; 2024-08-20)
DX: T83.83XA Hemorrhage due to genitourinary prosthetic devices, implants and grafts, initial encounter (principal); D68.318 Other hemorrhagic disorder due to intrinsic circulating anticoagulants, antibodies, or inhibitors; E87.1 Hypo-osmolality and hyponatremia; N99.820 Postprocedural hemorrhage of a genitourinary system organ or structure following a genitourinary system procedure; R31.0 Gross hematuria; D64.9 Anemia, unspecified; I25.10 Atherosclerotic heart disease of native coronary artery without angina pectoris; I10 Essential (primary) hypertension; R11.2 Nausea with vomiting, unspecified; E11.9 Type 2 diabetes mellitus without complications; E78.00 Pure hypercholesterolemia, unspecified; Z88.2 Allergy status to sulfonamides; Z88.1 Allergy status to other antibiotic agents; Z91.041 Radiographic dye allergy status; Z87.891 Personal history of nicotine dependence; Z90.49 Acquired absence of other specified parts of digestive tract; Z95.1 Presence of aortocoronary bypass graft; Z86.73 Personal history of transient ischemic attack (TIA), and cerebral infarction without residual deficits; Z87.11 Personal history of peptic ulcer disease; Y73.1 Therapeutic (nonsurgical) and rehabilitative gastroenterology and urology devices associated with adverse incidents; Y84.6 Urinary catheterization as the cause of abnormal reaction of the patient, or of later complication, without mention of misadventure at the time of the procedure
CPT/HCPCS: 36415; 36416; 51702; 51798; 74176; 80048; 80053; 81001; 85025; 85610; 85730; 87086; 99284; G0378; J1815; J1956; J2405; J2550; J3480

== ENCOUNTER 2025-06-07 12:25 | Inpatient (IN) | payer MEDICARE, OTHER ==
[2025-06-07 13:21] LABS: Bacteria/HPF None Seen HPF (None Seen); CAUTI Indications for Culture Fever or rigors; Glucose, Urine (Dipstick) Normal (Negative); Leukocyte 25 Leu/uL (Negative); Protein, Urine (Dipstick) Negative (Neg-Trace); Specific Gravity, Urine 1.012 (1.002-1.036)
[2025-06-07 13:23] LABS: Urine Culture Reflex Yes Yes
[2025-06-07 13:38] LABS: #Basophils Less than 0.03 10x3/uL (0.0-0.2); #Eosinophils 0.20 10x3/uL (0.0-0.7); #Monocytes 1.12 10x3/uL (0.11-0.59); #Neutrophils 7.11 10x3/uL (1.40-6.50); %Basophils 0.2 % (0.0-1.0); %Eosinophils 2.2 % (0.0-10.0); %Lymphocytes 5.6 % (21.0-51.0); %Monocytes 12.5 % (0.0-10.0); %Neutrophils 79.1 % (42.0-75.0); Hematocrit 40.6 % (42.0-52.0); Hemoglobin 13.9 g/dL (14.0-18.0); Mean Corpuscular Hemoglobin 31.4 pg (27.0-31.0); Mean Corpuscular Volume 91.6 fL (78.0-98.0); Platelet Count 254 10x3/uL (130-400); Red Blood Cell (RBC) Count 4.43 mill/uL (4.70-6.10); White Blood Cell (WBC) Count 8.99 10x3/uL (4.8-10.8)
[2025-06-07 14:05] LABS: ALT (SGPT) 22 U/L (Less than 45); AST (SGOT) 21 U/L (11-34); Albumin 4.6 g/dL (3.1-4.5); Alkaline Phosphatase 68 U/L (40-110); Anion Gap 13 mmol/L (10-20); BUN (Urea Nitrogen) 16 mg/dL (8.4-25.7); Bilirubin, Total 0.6 mg/dL (0.3-1.2); Calc. Creatinine Clearance 0 mL/min (70-130); Calcium 9.9 mg/dL (7.8-10.44); Carbon Dioxide 25 mmol/L (23-31); Chloride 100 mmol/L (98-107); Globulin 3.5 g/dL (2.4-3.5); Glucose 186 mg/dL (83-110); Potassium 4.4 mmol/L (3.5-5.1); Sodium 134 mmol/L (136-145)
[2025-06-07] MEDS ORDERED: Acetaminophen 500 MG TAB ONE ×2 (16:42→16:43)
[2025-06-07] MEDS ORDERED: Ketorolac Tromethamine 30 MG (1 mL) VIAL ONE (16:42)
[2025-06-07] MEDS ORDERED: cefTRIAXone (ROCEPHIN) 2 GM VIAL ONE (17:05)
[2025-06-07] MEDS ORDERED: Azithromycin 500 MG VIAL ONE (18:38)
[2025-06-07] MEDS ORDERED: Dexamethasone 10 MG/ML VIAL ONE (19:08)
[2025-06-07] MEDS ORDERED: Ondansetron PF 4 MG/2 ML Vial IVP PRN (19:30)
[2025-06-07] MEDS ORDERED: Dextrose 50% Abboject 50 ML SYRINGE SLOW IVP PRN (19:41)
[2025-06-07] MEDS ORDERED: Glucagon 1 MG/ML KIT IM PRN (19:41)
[2025-06-07 21:40] VITALS: BMI 30.1
[2025-06-07] MEDS: Benzonatate 100 MG CAP PO PRN (22:05)
[2025-06-07] MEDS: Acetaminophen 325 MG TAB PO PRN (22:06)
[2025-06-07] MEDS: Insulin Glargine 30 UNITS/0.3 ML VIAL SC SCH (22:07)
[2025-06-08 06:13] LABS: #Basophils Less than 0.03 10x3/uL (0.0-0.2); #Eosinophils Less than 0.03 10x3/uL (0.0-0.7); #Monocytes 0.18 10x3/uL (0.11-0.59); #Neutrophils 3.76 10x3/uL (1.40-6.50); %Basophils 0.2 % (0.0-1.0); %Eosinophils 0.0 % (0.0-10.0); %Lymphocytes 10.0 % (21.0-51.0); %Monocytes 4.1 % (0.0-10.0); %Neutrophils 85.0 % (42.0-75.0); Hematocrit 38.3 % (42.0-52.0); Hemoglobin 13.3 g/dL (14.0-18.0); Mean Corpuscular Hemoglobin 31.5 pg (27.0-31.0); Mean Corpuscular Volume 90.8 fL (78.0-98.0); Platelet Count 230 10x3/uL (130-400); Red Blood Cell (RBC) Count 4.22 mill/uL (4.70-6.10); White Blood Cell (WBC) Count 4.42 10x3/uL (4.8-10.8)
[2025-06-08 06:24] LABS: Anion Gap 16 mmol/L (10-20); BUN (Urea Nitrogen) 20 mg/dL (8.4-25.7); Calc. Creatinine Clearance 69 mL/min (70-130); Calcium 8.7 mg/dL (7.8-10.44); Carbon Dioxide 20 mmol/L (23-31); Chloride 102 mmol/L (98-107); Glucose 282 mg/dL (83-110); Potassium 4.4 mmol/L (3.5-5.1); Sodium 134 mmol/L (136-145)
[2025-06-08] MEDS ORDERED: Azithromycin 500 MG in Syringe 0 ML IVPB SCH (09:00)
[2025-06-08] MEDS: Enoxaparin 40 MG (0.4 mL) SYRINGE SC SCH (09:41)
[2025-06-08] MEDS: Azithromycin 500 MG in Sodium Chloride 0.9% 250 ML 250 ML IVPB SCH (09:42)
[2025-06-08] MEDS: Metoprolol Succinate XL 50 MG ER.TAB PO SCH (09:43)
[2025-06-08] MEDS: Aspirin 81 mg Enteric Coated Tablet PO SCH (09:43)
[2025-06-08] MEDS: Ezetimibe 10 MG TAB PO SCH (09:43)
[2025-06-08] MEDS: cefTRIAXone\\ROCEPHIN 2 GM in Sodium Chloride 0.9% 100 ML IVPB SCH (11:58)
[2025-06-09 07:03] LABS: Anion Gap 12 mmol/L (10-20); BUN (Urea Nitrogen) 19 mg/dL (8.4-25.7); Calc. Creatinine Clearance 80 mL/min (70-130); Calcium 8.5 mg/dL (7.8-10.44); Carbon Dioxide 21 mmol/L (23-31); Chloride 105 mmol/L (98-107); Glucose 262 mg/dL (83-110); Potassium 4.2 mmol/L (3.5-5.1); Sodium 134 mmol/L (136-145)
[2025-06-09] MEDS: metFORMIN 500 MG TAB PO SCH (09:36)
[2025-06-09] MEDS: Multivit, Therapeutic 1 TAB PO SCH (09:37)
[2025-06-09 11:34] VITALS: BP 136/81; TEMP 98.4
[2025-06-09] MEDS ORDERED: Ezetimibe 10 MG TAB PO SCH (21:00)
[2025-06-10] MEDS ORDERED: Dexamethasone 10 MG/ML VIAL SLOW IVP SCH (09:00)
== END 2025-06-09 13:03 | disposition home or self-care (01) | DRG 177 ==
LOC: ERS 12:25 → T4-A 19:41
PROVIDERS: ADMIT Internal Medicine; ATTEND Family Medicine
DX: U07.1 COVID-19 (principal); J15.9 Unspecified bacterial pneumonia; G47.33 Obstructive sleep apnea (adult) (pediatric); I25.10 Atherosclerotic heart disease of native coronary artery without angina pectoris; I10 Essential (primary) hypertension; E11.9 Type 2 diabetes mellitus without complications; C67.9 Malignant neoplasm of bladder, unspecified; Z91.041 Radiographic dye allergy status; Z88.2 Allergy status to sulfonamides; Z88.1 Allergy status to other antibiotic agents; Z79.4 Long term (current) use of insulin; Z79.899 Other long term (current) drug therapy; Z79.82 Long term (current) use of aspirin; Z90.89 Acquired absence of other organs; Z90.49 Acquired absence of other specified parts of digestive tract; Z87.891 Personal history of nicotine dependence
CPT/HCPCS: 36415; 36416; 51702; 71045; 80048; 80053; 81001; 83605; 85025; 85379; 87040; 87086; 87426; 96365; 96366; 96367; 96375; J0456; J0696; J1100; J1650; J1815; J1885; J7050